=== PATIENT | male | born 1955 | race Caucasian/White ===

== ENCOUNTER → 2017-04-06 | Outpatient (CLI) | payer MEDICARE ==
--- NOTE | ~2017-04-06 | CT71 ---
[facility] A Service of [facility] RADIOLOGY TEXT RESULTS PATIENT: [facility]IM BARR[facility] UN[facility] #: [id number] AGE: [address]: Dayana Saeed MD SEX: M ORDER DR: [id number] [facility] [address] [facility]. [place], [place] [address] [id number] O MR#: [id number] Acc #: [id number] NAME: JIM BARRON : 1955 SEX: M STUDY DATE/TIME: 04/06/2017 8:49 UNIT: [facility] ROOM: STUDY DESCRIPTION: CT Head Wo Contrast Attending Physician: Dayana Saeed M.D. Referring Physician: Dayana Saeed M.D. Ordering Physician: Dayana Saeed M.D. Primary Care Physician: No Primary Care Physician MEDICAL IMAGING REPORT This report is preliminary unless electronic signature is present EXAM CT head without contrast, 04/06/2017. HISTORY 62-year-old male with blurry vision for 1 year. Vision is worsening. Dizziness and occasional headaches for 3 weeks. COMPARISON None TECHNIQUE Routine unenhanced axial images performed through the brain. This CT exam was performed with one or more of the following radiation dose reduction techniques: automatic exposure control, adjustment of mA and/or kV according to patient size, and iterative reconstruction. FINDINGS No hemorrhage, acute infarction, mass lesion, or abnormal extraaxial fluid collection. No midline shift or focal mass effect. Ventricular system is normal in size and configuration. No acute bony abnormality. Visualized paranasal sinuses and mastoid air cells are clear. IMPRESSION No acute intracranial abnormality. Dictated by... Myles Briggs M.D. THIS IS AN ELECTRONICALLY VERIFIED REPORT Myles Briggs M.D. at 04/07/2017 2:08 PM DELMA/olivia [facility] A Service of [facility] RADIOLOGY TEXT RESULTS PATIENT: JIM BARRON [facility] [birth year] UNIT #: [id number] AGE: [address]: Dayana Saeed MD SEX: M ORDER DR: TD: 04/06/2017 14:19 JOB #: [id number] MEDICAL IMAGING REPORT Page 1 of 1 COPY
--- NOTE | ~2017-04-06 | US37 ---
[facility] A Service of [facility] & [facility] RADIOLOGY TEXT RESULTS PATIENT: JIM BARRON LOCATION: [facility] : 59 UNIT #: [id number] AGE: [address]: Dayana Saeed MD SEX: M ORDER DR: [id number] [facility] [address] [facility] [facility] [place], [place] [address] [id number] O MR#: [id number] Acc #: [id number] NAME: JIM BARRON : 1955 SEX: M STUDY DATE/TIME: 04/06/2017 9:16 UNIT: [facility] ROOM: STUDY DESCRIPTION: US Carotid W/Doppler Bilateral Attending Physician: Dayana Saeed M.D. Referring Physician: Dayana Saeed M.D. Ordering Physician: Dayana Saeed M.D. Primary Care Physician: Primary Care Physician No MEDICAL IMAGING REPORT This report is preliminary unless electronic signature is present EXAM Carotid Doppler bilateral, 04/06/2017 HISTORY Dizziness for 1-1/2 months, confusion and memory loss for the past 6 weeks as well as loss of balance and coordination. Blurred vision for 6 weeks. Numbness in the arms and face for 1 year, worsening over the past 6 weeks. Evaluate for carotid stenosis. FINDINGS Anton-scale carotid artery images were obtained as well as Doppler waveform spectral analysis and color flow Doppler imaging. The examination was interpreted according to NASCET criteria. There is no hemodynamically significant stenosis in either carotid artery. Peak systolic velocity in the right and left internal carotid arteries was 79 cm/sec and 72 cm/sec respectively. Antegrade blood flow is seen in both vertebral arteries. Only trace plaque was seen bilaterally. IMPRESSION No hemodynamically significant stenosis in either carotid artery. Dictated by... John Peña M.D. THIS IS AN ELECTRONICALLY VERIFIED REPORT John Peña M.D. at 04/07/2017 8:12 AM SERGIO/josue TD: 04/06/2017 13:11 JOB #: [id number] MEDICAL IMAGING REPORT Page 1 of 1 COPY
== END | disposition home or self-care (01) ==
LOC: CCAT 07:52
DX: G60.9 Hereditary and idiopathic neuropathy, unspecified (principal)
CPT/HCPCS: 70450; 93880

== ENCOUNTER → 2017-04-13 | Outpatient (CLI) | payer MEDICARE ==
--- NOTE | ~2017-04-13 | TH ---
Unit #: [id number] #: [id number] Patient: JIM BARRON [id number] [address] [address] [id number] O MR#: [id number] NAME: JIM BARRON : 1955 SEX: M STUDY DATE/TIME: UNIT: [facility] ROOM: STUDY DESCRIPTION: Nuclear Study Attending Physician: José Miguel Akbar M.D. Referring Physician: José Miguel Akbar M.D. Primary Care Physician: No Primary Care Physician CARDIOLOGY REPORT EXAM Nuclear Study INDICATION Chest discomfort/chest pain. SUMMARY The patient underwent nuclear stress test. Received a resting dose of 10.8 mCi and a stress dose of 29.4 mCi. On gated imaging, the patient appears to have normal wall motion with preserved ejection fraction. The patient's LVEF is 64%. On perfusion imaging, comparing rest and stress imaging, there appears to be no reversible perfusion defects. On raw images, there is no abnormal uptake. CONCLUSION 1. No obvious ischemia. 2. Preserved ejection fraction. 3. ECG portion to be dictated separately. Dictated by... Fredrick Roca M.D. NE/df TD: 04/13/2017 13:58 JOB #: [id number] Unit #: [id number] #: [id number] Patient: JIM BARRON CARDIOLOGY REPORT Page 1 of 1 X FREDRICK ROCA MD CARDIOLOGY REPORT
--- NOTE | ~2017-04-13 | ST ---
Unit #: [id number] #: [id number] Patient: JIM BARRON [id number] [address] [address] [id number] O MR#: [id number] NAME: JIM BARRON : 1955 SEX: M STUDY DATE/TIME: UNIT: [facility] ROOM: STUDY DESCRIPTION: Stress Test Attending Physician: José Miguel Akbra M.D. Referring Physician: José Miguel Akbar M.D. Primary Care Physician: No Primary Care Physician CARDIOLOGY REPORT EXAM Stress Test INDICATION Chest discomfort/chest pain. SUMMARY The patient underwent Lexiscan protocol. Patient's resting heart rate is 60 beats/minute which increased to 111 beats/minute representing 69% of the maximum age-predicted heart rate. Patient's resting blood pressure 117/86 mmHg which increased to 137/90 mmHg. Patient's resting ECG showed normal sinus rhythm with normal ST segments. Patient's stress ECG was sinus tachycardia with preserved ST segments. There is no ventricular or supraventricular ectopy noted. There are no pauses noted. CONCLUSION 1. Negative ECG portion of the Lexiscan stress test for ischemia. 2. Perfusion imaging dictated separately. Dictated by... Fredrick Roca M.D. VT/jimbo TD: 04/13/2017 13:54 JOB #: [id number] CARDIOLOGY REPORT Page 1 of 1 X FREDRICK ROCA MD CARDIOLOGY REPORT
== END | disposition home or self-care (01) ==
LOC: CNUC 08:50
DX: R07.89 Other chest pain (principal); R00.1 Bradycardia, unspecified; R42 Dizziness and giddiness; I35.8 Other nonrheumatic aortic valve disorders; I34.0 Nonrheumatic mitral (valve) insufficiency
CPT/HCPCS: 78452; 93017; 93306; A9500; J2785